=== PATIENT | female | born 1945 | race Caucasian/White ===

== ENCOUNTER 2019-01-14 06:30 | Inpatient (IN) | payer MEDICARE ==
[~2019-01-14 06:30] MED LIST: Famotidine 20 MG/2 ML SDV IVPUSH SCH; Scopolamine 1.5 MG Transdermal Patch TRDERM SCH
[2019-01-14] MEDS ORDERED: Propofol 200 MG/20 ML SDV ONE (07:13)
[2019-01-14] MEDS ORDERED: Midazolam 1 MG/ML 2 ML SDV ONE (07:13)
[2019-01-14] MEDS ORDERED: fentaNYL 100 MCG/2 ML SDV ONE (07:13)
[2019-01-14] MEDS: Lactated Ringers 1,000 ML IV SCH ×2 (07:15→16:09)
[2019-01-14] MEDS ORDERED: Ketamine 500 mg/10 ML MDV ONE (07:19)
[2019-01-14] MEDS ORDERED: Dexamethasone 4 MG/ML 5 ML MDV ONE (07:20)
[2019-01-14] MEDS: Acetaminophen 1,000 MG in Premix Bag 1 BAG IV SCH ×6 (07:26→21:14)
--- NOTE | 2019-01-14 07:32 | PCM.PREANE ---
Preanesthetic Assessment - Anesthesia/Transfusion/Family Hx Anesthesia History: Prior Anesthesia Without Reaction Family History of Anesthesia Reaction: No Transfusion History: Prior Transfusion Without Reaction Intubation History: Unknown - Review of Systems General: No Symptoms Pulmonary: No Symptoms Cardiovascular: No Symptoms Gastrointestinal: No Symptoms Neurological: No Symptoms Other: Reports: None - Physical Assessment Height: 1.59 m Weight: 85.729 kg ASA Class: 3 Mental Status: Alert & Oriented x3 Airway Class: Mallampati = 2 Dentition: Reports: Dentures (upper) Thyro-Mental Finger Breadths: 3 Mouth Opening Finger Breadths: 3 ROM/Head Extension: Limited/Partial Lungs: Clear to Auscultation, Normal Respiratory Effort, Decreased Breath Sounds Cardiovascular: Regular Rate, Regular Rhythm - Allergies Allergies/Adverse Reactions: Allergies Allergy/AdvReac Type Severity Reaction Status Date / Time acetaminophen [From Percocet] Allergy Hives Verified 01/09/19 10:27 oxycodone [From Percocet] Allergy Hives Verified 01/09/19 10:27 - Blood Blood Available: No - Anesthesia Plan Pre-Op Medication Ordered: None - Acknowledgements Anesthesia Type Planned: General Anesthesia Pt an Appropriate Candidate for the Planned Anesthesia: Yes Alternatives and Risks of Anesthesia Discussed w Pt/Guardian: Yes Pt/Guardian Understands and Agrees with Anesthesia Plan: Yes PreAnesthesia Questionnaire HEENT History: Reports: Other (See Below) Other HEENT History: wears glasses, has upper denture Cardiovascular History: Reports: Arrhythmia (s/p ablation 04/08), CAD, High Cholesterol, Hypertension, [place] ( 2009), Other (See Below) (PVD (s/p carotid andarterectomy) 08/08) Respiratory History: Reports: COPD Other Respiratory History: uses O2 at night, sometimes during the day Gastrointestinal History: Reports: GERD, Hiatal Hernia Genitourinary History: Reports: None 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: Musculoskeletal History: Reports: Back Pain, Chronic, Fracture, Osteoarthritis Other Musculoskeletal History: hx of fx foot Neurological History: Reports: Neuropathy, Peripheral, Other (See Below) Other Neuro History: degenerative disc disease Psychiatric History: Reports: Anxiety, Depression Other Psychiatric History: "anxiety attacks" Endocrine/Metabolic History: Reports: Obesity/BMI 30+ Hematologic History: Reports: Anticoagulation Therapy, Blood Transfusion(s) - Past Surgical History Head Surgeries/Procedures: Reports: None Cardiovascular Surgical History: Reports: Cardiac Ablation, Carotid Endarterectomy, Coronary Artery Stent Other Cardiovascular Surgeries/Procedures: Angioplasty with 1 stent 2008, Left Carotid Endarterectomy, Cardiac Ablation for SVT 2017 GI Surgical History: Reports: Colonoscopy, EGD Female Surgical History: Reports: Tubal Ligation Neurological Surgical History: Reports: Lumbar Spine, Spinal Fusion Musculoskeletal Surgical History: Reports: Other (See Below) Other Musculoskeletal Surgeries/Procedures:: tendon transfer left thumb - SUBSTANCE USE Smoking Status *Q: Former Smoker Tobacco Use Within Last Twelve Months: No Recreational Drug Use History: No - HOME MEDS Home Medications: Home Meds ALPRAZolam [Xanax] 0.5 mg PO BID 01/09/19 [History] Acetaminophen/Diphenhydramine [Tylenol Pm Ex-Strength Caplet] 2 tab PO BEDTIME 01/09/19 [History] Aspirin [Adult Low Dose Aspirin EC] 81 mg PO QAM 01/09/19 [History] Atenolol 25 mg PO QAM 01/09/19 [History] Budesonide/Formoterol Fumarate [Symbicort 80-4.5 Mcg Inhaler] 1 puff INH BID PRN 01/09/19 [History] Calcium Carbonate/Vitamin D3 [Calcium 600 + Vit D 200] 1 tab PO QAM 01/09/19 [ History] Clopidogrel [Plavix] 75 mg PO DAILY 01/09/19 [History] Docusate Sodium [Colace] 200 mg PO BEDTIME 01/09/19 [History] Famotidine 20 mg PO BID 01/09/19 [History] Furosemide 40 mg PO QAM 01/09/19 [History] HYDROmorphone [Dilaudid] 4 mg PO Q4HR PRN 01/09/19 [History] Isosorbide Mononitrate [Isosorbide Mononitrate ER] 60 mg PO QAM 01/09/19 [ History] Lactobac Cmb #3/Fos/Pantethine [Probiotic & Acidophilus] 1 cap PO QAM 01/09/19 [ History] Nitroglycerin [Nitrostat] 0.4 mg SL ASDIRECTED PRN 01/09/19 [History] Potassium Chloride 20 meq PO BID 01/09/19 [History] Pravastatin Sodium [Pravastatin (Pravachol)] 80 mg PO QAM 01/09/19 [History] Pregabalin [Lyrica] 100 mg PO BID 01/09/19 [History] Spironolactone [Aldactone] 12.5 mg PO QAM 01/09/19 [History] busPIRone [Buspar] 15 mg PO BID 01/09/19 [History] - CURRENT (IN HOUSE) MEDS Current Meds: Current Medications Famotidine (Pepcid) 40 mg IVPUSH ONARRIVE [facility] Last Admin: 01/14/19 07:24 Dose: 40 mg Acetaminophen 1,000 mg/ Premix 100 mls @ 400 mls/hr IV ONARRIVE [facility] Last Admin: 01/14/19 07:26 Dose: 400 mls/hr Cefazolin Sodium/Dextrose 2 gm (/ Premix) 50 mls @ 100 mls/hr IV ONCALL [facility] Ropivacaine 49.25 ml/Ketorolac Tromethamine 30 mg/Epinephrine HCl 0.5 mg/ Clonidine HCl 80 mcg/ Sodium Chloride 75 mls @ 50 mls/sec INJECT ASDIRECTED [facility] Lactated Ringer's (Ringers, Lactated) 1,000 mls @ 100 mls/hr IV ASDIRECTED [facility] Tranexamic Acid 2,000 mg/ (Sodium Chloride) 120 mls @ 600 mls/hr IV ASDIRECTED [facility] Scopolamine (Transderm-Scop) 1.5 mg TRDERM ONARRIVE [facility] Last Admin: 01/14/19 07:24 Dose: 1.5 mg Discontinued Medications Dexamethasone (Dexamethasone) Confirm Administered Dose 20 mg .ROUTE .STK-MED ONE Stop: 01/14/19 07:21 Fentanyl (Sublimaze) Confirm Administered Dose 100 mcg .ROUTE .STK-MED ONE Stop: 01/14/19 07:14 Lidocaine HCl (Xylocaine-Mpf 1%) Confirm Administered Dose 5 mls @ as directed .ROUTE .STK-MED ONE Stop: 01/14/19 07:20 Ketamine HCl (Ketalar) Confirm Administered Dose 500 mg .ROUTE .STK-MED ONE Stop: 01/14/19 07:20 Midazolam HCl (Versed 1 Mg/Ml) Confirm Administered Dose 2 mg .ROUTE .STK-MED ONE Stop: 01/14/19 07:14 Propofol (Diprivan 20 Ml) Confirm Administered Dose 400 mg .ROUTE .STK-MED ONE Stop: 01/14/19 07:14
[2019-01-14] MEDS ORDERED: Rocuronium 10 MG/ML 10 ML Syringe ONE (07:53)
[2019-01-14] MEDS ORDERED: ceFAZolin/Dextrose,Iso-Osmotic 2 GM/50 ML Duplex Bag IV ONE (07:53)
[2019-01-14] MEDS ORDERED: Ropivacaine 49.25 ML, Ketorolac 30 MG, EPINEPHrine 0.5 MG, cloNIDine 80 MCG in Sodium C... INJECT SCH (08:00)
[2019-01-14] MEDS ORDERED: ceFAZolin 2 GM in Premix Bag 1 BAG IV SCH (08:00)
[2019-01-14] MEDS ORDERED: Tranexamic Acid 2,000 MG in Sodium Chloride 0.9% 100 ML IV SCH (08:00)
[2019-01-14] MEDS ORDERED: Phenylephrine/Normal Saline 100 MCG/ML 10 ML Syringe ONE (08:15)
[2019-01-14] MEDS ORDERED: ePHEDrine 50 MG/ML SDV ONE (08:21)
[2019-01-14] MEDS ORDERED: HYDROmorphone 2 MG/ML Syringe ONE (08:28)
[2019-01-14] MEDS ORDERED: Ketorolac 30 MG/ML SDV ONE (08:45)
[2019-01-14] MEDS ORDERED: Glycopyrrolate 0.2 MG/ML SDV ONE ×2 (08:45→09:15)
[2019-01-14] MEDS ORDERED: Neostigmine Methylsulfate 1 MG/ML 5 ML Syringe ONE (08:45)
[2019-01-14] MEDS ORDERED: Ondansetron 4 MG/2 ML SDV ONE (08:45)
[2019-01-14] MEDS ORDERED: Sodium Chloride 0.9% 10 ML Syringe FLUSH PRN (09:19)
[2019-01-14] MEDS ORDERED: diphenhydrAMINE 25 MG Cap PO PRN (09:19)
[2019-01-14] MEDS ORDERED: Sodium Chloride 0.9% 2.5 ML Syringe FLUSH PRN (09:19)
[2019-01-14] MEDS ORDERED: Bisacodyl 10 MG Supp RECTAL PRN (09:19)
[2019-01-14] MEDS ORDERED: Docusate Sodium 100 MG Cap PO PRN (09:19)
[2019-01-14] MEDS ORDERED: Ondansetron 4 MG/2 ML SDV IVPUSH PRN (09:19)
[2019-01-14] MEDS ORDERED: Aluminum Hydroxide/Magnesium Hydroxide/Simethicone Susp 30 ML Cup PO PRN (09:19)
[2019-01-14] MEDS ORDERED: BUDESONIDE INH PRN (09:24)
[2019-01-14] MEDS ORDERED: Nitroglycerin 0.4 MG Tab.SL SL PRN (09:24)
[2019-01-14] MEDS ORDERED: FORMOTEROL FUMARATE INH PRN (09:24)
--- NOTE | 2019-01-14 09:36 | PCM.OPNOTE ---
- General Post-Op/Procedure Note Date of Surgery/Procedure: 01/14/19 Operative Procedure(s): R TKA Post-Op Diagnosis: DJD R knee Anesthesia Technique: General ET Tube Primary Surgeon: Katiana Madera Customer Sales Distributor: Latosha Jones Customer Sales Distributor: Denia Dwyer EBL in mLs: 50 Condition: Good Free Text/Narrative:: tt=38 min #[id number]
[2019-01-14] MEDS: HYDROmorphone 2 MG/ML Syringe IVPUSH PRN ×4 (09:55→10:25)
[2019-01-14] MEDS ORDERED: HYDROmorphone 2 MG/ML Syringe IVPUSH PRN (11:04)
[2019-01-14] MEDS: HYDROmorphone 2 MG Tab PO PRN ×3 (13:52→23:01)
--- NOTE | 2019-01-14 14:11 | PCM.CONS ---
<Hortencia Sandoval M - Last Filed: 01/14/19 14:01> H&P History of Present Illness - General Date of Service: 01/14/19 Admit Problem/Dx: Admission Diagnosis/Problem Admission Diagnosis/Problem Replacement of total knee joint Source of Information: Patient, Old Records (Review of PCP and Dr Guevara pre- operative notes.) History Limitations: Reports: No Limitations - History of Present Illness Initial Comments - Free Text/Narative: This 73 year old female with pmh of CAD, [place] s/p PCI, COPD oxygen dependent, and hx of R carotid endarterectomy presented today for elective R TKA with Dr Madera. Hospitalist services consulted due to medical comorbidities. She did have cardiac catheterization March 2018, after episodes of chest pain, this was noted by Dr Guevara as unremarkable. Marisela recently arrived to floor from PACU, she was just up with PT and is now complaining of R knee pain 5-6/10. She denies any chest pain or shortness of breath. SHe is currently on home level oxygen at 3 L NC. She reports she doesn' t always wear it at home and sometimes with strenuous activity she will need to increase it. She saw Dr Guevara, trimming assembler pre-operatively, who increased Lasix to 40 mg BID, but then stopped this and placed her back on Lasix 40 mg daily with 12.5 Spironolactone. She feels her edema to her feet is much better after he changed her meds. She reports she otherwise is feeling well and at her baseline. Labwork today, CBC WNL. BUN 26, Cr 1.6. This is elevated from baseline at BUN 23 , Cr 1.1. Will monitor. PCP, BOB Abreu Right Knee Pain Score (Numeric/FACES): 6 - Related Data Allergies/Adverse Reactions: Allergies Allergy/AdvReac Type Severity Reaction Status Date / Time acetaminophen [From Percocet] Allergy Hives Verified 01/09/19 10:27 oxycodone [From Percocet] Allergy Hives Verified 01/09/19 10:27 Home Medications: Home Meds ALPRAZolam [Xanax] 0.5 mg PO BID 01/09/19 [History] Acetaminophen/Diphenhydramine [Tylenol Pm Ex-Strength Caplet] 2 tab PO BEDTIME 01/09/19 [History] Aspirin [Adult Low Dose Aspirin EC] 81 mg PO QAM 01/09/19 [History] Atenolol 25 mg PO QAM 01/09/19 [History] Budesonide/Formoterol Fumarate [Symbicort 80-4.5 Mcg Inhaler] 1 puff INH BID PRN 01/09/19 [History] Calcium Carbonate/Vitamin D3 [Calcium 600 + Vit D 200] 1 tab PO QAM 01/09/19 [ History] Clopidogrel [Plavix] 75 mg PO DAILY 01/09/19 [History] Docusate Sodium [Colace] 200 mg PO BEDTIME 01/09/19 [History] Famotidine 20 mg PO BID 01/09/19 [History] Furosemide 40 mg PO QAM 01/09/19 [History] HYDROmorphone [Dilaudid] 4 mg PO Q4HR PRN 01/09/19 [History] Isosorbide Mononitrate [Isosorbide Mononitrate ER] 60 mg PO QAM 01/09/19 [ History] Lactobac Cmb #3/Fos/Pantethine [Probiotic & Acidophilus] 1 cap PO QAM 01/09/19 [ History] Nitroglycerin [Nitrostat] 0.4 mg SL ASDIRECTED PRN 01/09/19 [History] Potassium Chloride 20 meq PO BID 01/09/19 [History] Pravastatin Sodium [Pravastatin (Pravachol)] 80 mg PO QAM 01/09/19 [History] Pregabalin [Lyrica] 100 mg PO BID 01/09/19 [History] Spironolactone [Aldactone] 12.5 mg PO QAM 01/09/19 [History] busPIRone [Buspar] 15 mg PO BID 01/09/19 [History] Past Medical History HEENT History: Reports: Other (See Below) Other HEENT History: wears glasses, has upper denture Cardiovascular History: Reports: Arrhythmia (s/p ablation 04/08), CAD, High Cholesterol, Hypertension, [place] ( 2009), Other (See Below) (PVD (s/p carotid endarterectomy) 08/08) Respiratory History: Reports: COPD Other Respiratory History: uses O2 at night, sometimes during the day Gastrointestinal History: Reports: GERD, Hiatal Hernia Genitourinary History: Reports: None 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 Denies: Diabetes, Type II Hematologic History: Reports: Anticoagulation Therapy, Blood Transfusion(s) - Past Surgical History Head Surgeries/Procedures: Reports: None Cardiovascular Surgical History: Reports: Cardiac Ablation, Carotid Endarterectomy, Coronary Artery Stent Other Cardiovascular Surgeries/Procedures: Angioplasty with 1 stent 2008, Left Carotid Endarterectomy, Cardiac Ablation for SVT 2016 GI Surgical History: Reports: Colonoscopy, EGD Female Surgical History: Reports: Tubal Ligation Neurological Surgical History: Reports: Lumbar Spine, Spinal Fusion Musculoskeletal Surgical History: Reports: Other (See Below) Other Musculoskeletal Surgeries/Procedures:: tendon transfer left thumb Social & Family History - Tobacco Use Smoking Status *Q: Former Smoker Years of Tobacco use: 40 Packs/Tins Daily: 1 Tobacco Use Comment: quit smoking March 2017 - Alcohol Use Alcohol Use History: No Alcohol Use Frequency: Socially - Recreational Drug Use Recreational Drug Use: No Drug Use in Last 12 Months: No H&P Review of Systems - Review of Systems: Review Of Systems: See Below General: Reports: No Symptoms. Denies: Fever, Chills, Malaise, Weakness HEENT: Reports: No Symptoms. Denies: Headaches, Sinus Congestion, Sore Throat Pulmonary: Reports: No Symptoms. Denies: Shortness of Breath, Wheezing, Cough Cardiovascular: Reports: No Symptoms. Denies: Chest Pain, Dyspnea on Exertion, Edema Gastrointestinal: Reports: No Symptoms. Denies: Abdominal Pain, Black Stool, Bloody Stool, Decreased Appetite, Distension, Nausea Genitourinary: Reports: No Symptoms Musculoskeletal: Reports: Joint Pain (R Knee pain after PT) Psychiatric: Reports: No Symptoms Neurological: Reports: No Symptoms Hematologic/Lymphatic: Reports: No Symptoms Immunologic: Reports: No Symptoms Exam - Exam Exam: See Below - Vital Signs Vital Signs: Last Vital Signs Temp 98.1 F 01/14/19 10:40 Pulse 58 L 01/14/19 11:55 Resp 16 01/14/19 11:55 BP 97/71 01/14/19 11:55 Pulse Ox 93 L 01/14/19 11:55 Weight: 85.729 kg - Exam Quality Assessment: Supplemental Oxygen, Urinary Catheter, DVT Prophylaxis General: Alert, Oriented, Cooperative HEENT: Conjunctiva Clear Neck: Supple, Trachea Midline Lungs: Clear to Auscultation, Normal Respiratory Effort Cardiovascular: Regular Rate, Regular Rhythm, Normal S1, Normal S2. No: Irregular Rhythm, Systolic Murmur GI/Abdominal Exam: Normal Bowel Sounds, Soft, Non-Tender, No Distention Extremities: Normal Inspection, Normal Range of Motion, Non-Tender, Pedal Edema (scant +1 to L foot) Neuro Extensive - Mental Status: Alert, Oriented x3, Normal Mood/Affect Neuro Extensive - Motor, Sensory, Reflexes: CN II-XII Intact Psychiatric: Alert, Normal Affect, Normal Mood - Patient Data Lab Results Last 24 hrs: Laboratory Results - last 24 hr 01/14/19 01/14/19 01/14/19 Range/Units 07:10 12:12 12:12 WBC 9.21 (4.0-11.0) K/uL RBC 4.12 L (4.30-5.90) M/uL Hgb 12.3 (12.0-16.0) g/dL Hct 38.4 (36.0-46.0) % MCV 93.2 (80.0-98.0) fL MCH 29.9 (27.0-32.0) pg MCHC 32.0 (31.0-37.0) g/dL RDW Std Deviation 46.9 (28.0-62.0) fl RDW Coeff of Karen 14 (11.0-15.0) % Plt Count 260 (150-400) K/uL MPV 10.20 (7.40-12.00) fL Neut % (Auto) 91.5 H (48.0-80.0) % Lymph % (Auto) 7.9 L (16.0-40.0) % [place] % (Auto) 0.4 (0.0-15.0) % Eos % (Auto) 0.1 (0.0-7.0) % Baso % (Auto) 0.1 (0.0-1.5) % Neut # (Auto) 8.4 H (1.4-5.7) K/uL Lymph # (Auto) 0.7 (0.6-2.4) K/uL [place] # (Auto) 0.0 (0.0-0.8) K/uL Eos # (Auto) 0.0 (0.0-0.7) K/uL Baso # (Auto) 0.0 (0.0-0.1) K/uL Nucleated RBC % 0.0 /100WBC Nucleated RBCs # 0 K/uL Sodium 137 (136-145) mmol/L Potassium 5.1 (3.5-5.1) mmol/L Chloride 101 (98-107) mmol/L Carbon Dioxide 25.6 (21.0-32.0) mmol/L BUN 26 H (7.0-18.0) mg/dL Creatinine 1.6 H (0.6-1.0) mg/dL Est Cr Clr Drug Dosing 26.09 mL/min Estimated GFR (MDRD) 31.8 ml/min Glucose 181 H (74-106) mg/dL Calcium 8.3 L (8.5-10.1) mg/dL Magnesium 2.0 (1.8-2.4) mg/dL Blood Type O POSITIVE Antibody Screen NEGATIVE Result Diagrams: 01/14/19 12:12 01/14/19 12:12 Consult PN Assessment/Plan Procedures: Procedures EDUARDO DNA DIR PROBE (01/06/17) CULTURE OTHR SPECIMN AEROBIC (01/06/17) FISCHER VAG DNA DIR PROBE (01/06/17) MRI JNT OF LWR EXTRE W/O DYE (11/29/18) TRICHOMONAS VAGIN DIR PROBE (01/06/17) X-RAY EXAM KNEE 4 OR MORE (10/26/18) (1) S/P total knee arthroplasty SNOMED Code(s): 8967461327729, 269848802, 7087923459344 Code(s): Z96.659 - PRESENCE OF UNSPECIFIED ARTIFICIAL KNEE JOINT Current Visit: Yes Qualifiers: Laterality: right Qualified Code(s): Z96.651 - Presence of right artificial knee joint (2) HTN (hypertension) SNOMED Code(s): 77127534 Code(s): I10 - ESSENTIAL (PRIMARY) HYPERTENSION Current Visit: Yes Qualifiers: Hypertension type: essential hypertension Qualified Code(s): I10 - Essential (primary) hypertension (3) CAD (coronary artery disease) SNOMED Code(s): 35335129 Code(s): I25.10 - ATHSCL HEART DISEASE OF [place] CORONARY ARTERY W/O ANG PCTRS Current Visit: Yes Qualifiers: Coronary Disease-Associated Artery/Lesion type: [place] artery [place] vs. transplanted heart: [place] heart Associated angina: without angina Qualified Code(s): I25.10 - Atherosclerotic heart disease of [place] coronary artery without angina pectoris (4) Hx of myocardial infarction SNOMED Code(s): 053678466 Code(s): I25.2 - OLD MYOCARDIAL INFARCTION Current Visit: Yes (5) History of carotid endarterectomy SNOMED Code(s): 330932429, 883702523 Code(s): Z98.890 - OTHER SPECIFIED POSTPROCEDURAL STATES Current Visit: Yes (6) COPD (chronic obstructive pulmonary disease) SNOMED Code(s): 17628767 Code(s): J44.9 - CHRONIC OBSTRUCTIVE PULMONARY DISEASE, UNSPECIFIED Current Visit: Yes (7) Oxygen dependent SNOMED Code(s): 582430021378 Code(s): Z99.81 - DEPENDENCE ON SUPPLEMENTAL OXYGEN Current Visit: Yes (8) Hx of supraventricular tachycardia SNOMED Code(s): 284563879545930 Code(s): Z86.79 - PERSONAL HISTORY OF OTHER DISEASES OF THE CIRCULATORY SYSTEM Current Visit: Yes (9) History of radiofrequency ablation procedure for cardiac arrhythmia SNOMED Code(s): 413917285 Code(s): Z98.890 - OTHER SPECIFIED POSTPROCEDURAL STATES Current Visit: Yes (10) Dyslipidemia SNOMED Code(s): 077195127 Code(s): E78.5 - HYPERLIPIDEMIA, UNSPECIFIED Current Visit: Yes Problem List Initiated/Reviewed/Updated: Yes Plan: This 73 year old female admitted with R TKA with Dr Madera, hospitalist consulted for medical management of comorbidities 1. S/P R TKA: Orders per Orthopedic Team 2. HTN: Continue Atenolol and Imdur along with Lasix and Spironolactone. Will hold Potassium supplementation due to K+ 5.1. Monitor in am. 3. CAD: Stable. Continue ASA and Plavix. Along with statin. 4. COPD: Stable, no wheezing. Continue home inhalers, Symbicort. Order PRN Duonebs. 5. Elevated BUN/Cr: Monitor in am. Urine output good so far. Monitor fluids status in am, may consider slight dehydration prior to surgery. VTE prophylaxis: Recommended when deemed appropriate by Orthopedics <Marty King - Last Filed: 01/14/19 15:06> H&P History of Present Illness - General Admit Problem/Dx: Admission Diagnosis/Problem Admission Diagnosis/Problem Replacement of total knee joint - History of Present Illness Initial Comments - Free Text/Narative: I have seen and examined the patient independently of Hortencia Sandoval CNP. I have discussed the case with her. I have reviewed and agree with the assessment and plan of care for the patient as outlined by her. Please see orders. Thank you Dr. Madera for participation in care of your patient. Exam - Vital Signs Vital Signs: Last Vital Signs Temp 36.7 C 01/14/19 10:40 Pulse 58 L 01/14/19 11:55 Resp 16 01/14/19 11:55 BP 97/71 01/14/19 11:55 Pulse Ox 93 L 01/14/19 11:55 - Patient Data Lab Results Last 24 hrs: Laboratory Results - last 24 hr 01/14/19 01/14/19 01/14/19 Range/Units 07:10 12:12 12:12 WBC 9.21 (4.0-11.0) K/uL RBC 4.12 L (4.30-5.90) M/uL Hgb 12.3 (12.0-16.0) g/dL Hct 38.4 (36.0-46.0) % MCV 93.2 (80.0-98.0) fL MCH 29.9 (27.0-32.0) pg MCHC 32.0 (31.0-37.0) g/dL RDW Std Deviation 46.9 (28.0-62.0) fl RDW Coeff of Karen 14 (11.0-15.0) % Plt Count 260 (150-400) K/uL MPV 10.20 (7.40-12.00) fL Neut % (Auto) 91.5 H (48.0-80.0) % Lymph % (Auto) 7.9 L (16.0-40.0) % [place] % (Auto) 0.4 (0.0-15.0) % Eos % (Auto) 0.1 (0.0-7.0) % Baso % (Auto) 0.1 (0.0-1.5) % Neut # (Auto) 8.4 H (1.4-5.7) K/uL Lymph # (Auto) 0.7 (0.6-2.4) K/uL [place] # (Auto) 0.0 (0.0-0.8) K/uL Eos # (Auto) 0.0 (0.0-0.7) K/uL Baso # (Auto) 0.0 (0.0-0.1) K/uL Nucleated RBC % 0.0 /100WBC Nucleated RBCs # 0 K/uL Sodium 137 (136-145) mmol/L Potassium 5.1 (3.5-5.1) mmol/L Chloride 101 (98-107) mmol/L Carbon Dioxide 25.6 (21.0-32.0) mmol/L BUN 26 H (7.0-18.0) mg/dL Creatinine 1.6 H (0.6-1.0) mg/dL Est Cr Clr Drug Dosing 26.09 mL/min Estimated GFR (MDRD) 31.8 ml/min Glucose 181 H (74-106) mg/dL Calcium 8.3 L (8.5-10.1) mg/dL Magnesium 2.0 (1.8-2.4) mg/dL Blood Type O POSITIVE Antibody Screen NEGATIVE Result Diagrams: 01/14/19 12:12 01/14/19 12:12 Consult PN Assessment/Plan Procedures: Procedures EDUARDO DNA DIR PROBE (01/06/17) CULTURE OTHR SPECIMN AEROBIC (01/06/17) FISCHER VAG DNA DIR PROBE (01/06/17) MRI JNT OF LWR EXTRE W/O DYE (11/29/18) TRICHOMONAS VAGIN DIR PROBE (01/06/17) X-RAY EXAM KNEE 4 OR MORE (10/26/18)
--- NOTE | 2019-01-14 15:40 | OR ---
SURGEON: Katiana Madera MD DATE OF PROCEDURE: 01/14/2019 PREOPERATIVE DIAGNOSIS: Degenerative joint disease, right knee, tricompartmental. POSTOPERATIVE DIAGNOSIS: Degenerative joint disease, right knee, tricompartmental. PROCEDURE: Right total knee arthroplasty using patient-specific instrumentation. ASSISTANTS: Latosha Jones PA-C and JENNIFER Lassiter. ANESTHESIA: General. ESTIMATED BLOOD LOSS: 50 mL. TOURNIQUET TIME: 38 minutes. COMPLICATIONS: None. DVT PROPHYLAXIS: PAS boot and VINNY hose to the nonoperative leg. IMPLANTS USED: Satish Persona femoral component size 8 narrow (LPS), tibial component size E, 10 mm all-polyethylene articular insert, and 35 mm all-polyethylene patella. FINDINGS: Intraoperative findings showed severe tricompartmental degenerative changes with grade 4 chondromalacia. Osteophyte formation was also noted. No significant synovitis was found. BRIEF HISTORY: Marisela is a 73-year-old female, who has had complaint of progressive right knee pain. She had failed conservative treatment. Due to her lack of response to conservative treatment, I did recommend surgical intervention. The risks and goals of procedure were discussed with the patient and were documented preoperatively. She agreed to proceed. DESCRIPTION OF PROCEDURE: The patient was properly identified and brought to the operating room. The patient was then transferred from the operating room cart and placed on the operating table in a supine position. Anesthesia was administered by the anesthesia staff. After adequate anesthesia was obtained, a well-padded tourniquet was applied to the surgical lower extremity. Griggs catheter was placed. The lower extremity was then prepped in standard fashion using ChloraPrep solution. It was then sterilely draped. A time-out was performed to ensure correct site and procedure. Preoperative antibiotics were given along with one gram of tranexamic acid IV. The surgical site had been marked preoperatively. An Esmarch was used to exsanguinate the right lower extremity and the tourniquet was inflated. An incision was made over the anterior aspect of the knee. The subcutaneous tissues were dissected down to the level of the fascia. A medial parapatellar approach to the knee was made. A portion of the infrapatellar fat pad was then excised. The distal femur was then exposed. The femoral patient-specific cutting guide was then placed. Pins were also placed. The distal femoral cutting block was placed and the distal femoral cut was made. Instrumentation was then removed. Both Whitesides' line and the epicondylar axis were then marked with electrocautery. The 4-in-1 cutting block was placed. This was placed in a slightly externally rotated position, which corresponded well with the previously drawn lines. The cutting guide was then pinned into position. An [place] wing guide was used to check the depth of resection of our anterior condylar cut and it was felt that no notching would occur. The anterior condylar cut was then made followed by the posterior condylar cut. Both the posterior chamfer and anterior chamfer cuts were then made. The cutting block was then removed along with the excess bony remnants. We then turned our attention to the tibia. The anterior cruciate ligament and posterior cruciate ligament were released and a posterior cruciate ligament retractor was placed to allow the tibia to be pulled anteriorly. The tibial patient-specific guide was then placed on the proximal tibia. This fit anatomically. The pins were then placed. The proximal tibia cutting guide was then placed and screwed into position. The proximal tibial resection was then made with care being taken to protect the patellar tendon. The bony resection was then removed. The remainder of the medial and lateral meniscus were then excised. Care was taken to protect the popliteus tendon. The tibia was then sized to the appropriate size. The distal femur was then elevated. The posterior capsule was stripped off of the distal femur both medially and laterally. The posterior capsule along with the medial and lateral gutters were then injected with a standard mixture consisting of clonidine, epinephrine, Toradol, and Ropivacaine, unless any allergies were found preoperatively. The femoral component was then placed onto the distal femur in a slightly lateral position. This fit the femur well. A box cut was then made without difficulty. This was then removed. The tibial trial along with the polyethylene liner was then placed. The knee came easily into full extension and was stable to varus and valgus stressing both in full extension and flexion. Any additional releases were performed at this time. We then returned our attention to the patella. The patella was everted and towel clamps were used to hold the patella in position. It was resected to a 15 millimeter thickness. It was then sized to the appropriate size. It was prepared in the usual fashion after placing the predetermined size clamps. This was placed in a slightly superior and medial position. The clamp was then removed. The patellar trial button was placed. The knee was taken through a range of motion using the no-touch technique. The patella tracked centrally. A drop charisma was then placed to check alignment. All instruments were then removed from the knee. The tibial sizer was then placed on the tibia. The tibia was prepared in the usual fashion using the reamer and broach. This was then removed. All bony surfaces were copiously irrigated with Pulsavac solution. They were then suctioned dry. Cement was prepared on the back table in the usual manner. Once it was prepared, the bone ends were again suctioned dry. The tibia was cemented into place first. This was malleted into position. Excess cement was then cleared. The femur was then placed in a similar manner. We placed the polyethylene trial into place and the knee was brought into full extension. An axial load was placed while keeping the knee in full extension. The patella button was also cemented into position and the clamp was used to hold this in place as the cement was allowed to cure. The wound was again copiously irrigated with saline solution using a Pulsavac assignment manager. Following this 1 g of tranexamic acid was applied to the wound topically. After we had adequate curing of the cement, the knee was again taken through a range of motion. The size of the polyethylene was then determined. The polyethylene trial was then removed. The tibial tray was suctioned to make sure there was no remaining soft tissue or cement. Excess cement was cleared from around the edges of the prosthesis as well. The tourniquet was then deflated. We were able to observe for any excess bleeding and none was noted. Electrocautery was used to maintain hemostasis. An additional gram of tranexamic acid was given IV. The retractors were again placed and the predetermined polyethylene was then placed. This was locked into position without difficulty. The knee was again taken through a range of motion with no change from the prior exam. The fascial layer was closed with Number One Vicryl. The subcutaneous tissues were closed with 2-0 Vicryl. The skin was closed with rachael. Xeroform gauze was placed over the wound and a bulky dressing was applied. The patient was then awakened from anesthesia and transferred back to the operating room cart. They were brought to the recovery room in stable condition. All needle and sponge counts were correct. ABIDA / MODL /[id number]
--- NOTE | 2019-01-14 15:58 | CR ---
EXAMINATION: Right knee HISTORY: TKA COMPARISON: 10/26/2018 TECHNIQUE: 2 views FINDINGS/IMPRESSION: Right total knee hardware is demonstrated in good position and alignment. Operative soft tissue changes are noted.
[2019-01-14] MEDS: ceFAZolin 2 GM in Premix Bag 1 BAG IV SCH ×2 (16:11→23:15)
[2019-01-14] MEDS: Pregabalin 50 MG Cap PO SCH (20:01)
[2019-01-14] MEDS: ALPRAZolam 0.5 MG Tab PO SCH (20:02)
[2019-01-14] MEDS: busPIRone 5 MG Tab PO SCH (20:02)
[2019-01-14] MEDS: Famotidine 20 MG Tab PO SCH (20:03)
[2019-01-14] MEDS ORDERED: Potassium Chloride 20 MEQ Tab.ER PO SCH (21:00)
[2019-01-14] MEDS ORDERED: Docusate Sodium 100 MG Cap PO SCH (21:00)
[2019-01-15] MEDS: HYDROmorphone 2 MG Tab PO PRN ×4 (02:39→16:03)
[2019-01-15] MEDS: Lactated Ringers 1,000 ML IV SCH (02:40)
[2019-01-15] MEDS: Acetaminophen 1,000 MG in Premix Bag 1 BAG IV SCH (02:42)
--- NOTE | 2019-01-15 07:08 | PCM48HPAN ---
Post Anesthesia Note - EVALUATION WITHIN 48HRS OF ANESTHETIC Vital Signs in Normal Range: Yes Patient Participated in Evaluation: Yes Respiratory Function Stable: Yes Airway Patent: Yes Cardiovascular Function Stable: Yes Hydration Status Stable: Yes Pain Control Satisfactory: Yes Nausea and Vomiting Control Satisfactory: Yes Mental Status Recovered: Yes Resp Rate: 14
--- NOTE | 2019-01-15 07:22 | PCM.PN ---
- General Info Date of Service: 01/15/19 Admission Dx/Problem (Free Text): Right total knee arthroplasty postop day #1, hypertension, COPD, history of MA Subjective Update: The patient is a 73-year-old lady came in for total knee arthroplasty right side and she is currently postop day #1. The patient says that she has been ambulating. She is having some pain. Otherwise, she is doing well with no medical complaints. Functional Status: Reports: Pain Controlled, Tolerating Diet - Review of Systems General: Reports: No Symptoms HEENT: Reports: No Symptoms Pulmonary: Reports: No Symptoms Cardiovascular: Reports: No Symptoms Gastrointestinal: Reports: No Symptoms Genitourinary: Reports: No Symptoms Musculoskeletal: Reports: Leg Pain Skin: Reports: No Symptoms Neurological: Reports: No Symptoms Psychiatric: Reports: No Symptoms - Patient Data Vitals - Most Recent: Last Vital Signs Temp 36.8 C 01/15/19 05:26 Pulse 63 01/15/19 05:26 Resp 14 01/15/19 07:08 BP 132/64 01/15/19 05:26 Pulse Ox 97 01/15/19 05:26 Weight - Most Recent: 85.729 kg I&O - Last 24 Hours: Intake & Output 01/14/19 01/15/19 01/15/19 22:59 06:59 14:59 Intake Total 990 700 Output Total 250 950 Balance 740 -250 Lab Results Last 24 Hours: Laboratory Results - last 24 hr 01/14/19 01/14/19 01/14/19 Range/Units 07:10 12:12 12:12 WBC 9.21 (4.0-11.0) K/uL RBC 4.12 L (4.30-5.90) M/uL Hgb 12.3 (12.0-16.0) g/dL Hct 38.4 (36.0-46.0) % MCV 93.2 (80.0-98.0) fL MCH 29.9 (27.0-32.0) pg MCHC 32.0 (31.0-37.0) g/dL RDW Std Deviation 46.9 (28.0-62.0) fl RDW Coeff of Karen 14 (11.0-15.0) % Plt Count 260 (150-400) K/uL MPV 10.20 (7.40-12.00) fL Neut % (Auto) 91.5 H (48.0-80.0) % Lymph % (Auto) 7.9 L (16.0-40.0) % [place] % (Auto) 0.4 (0.0-15.0) % Eos % (Auto) 0.1 (0.0-7.0) % Baso % (Auto) 0.1 (0.0-1.5) % Neut # (Auto) 8.4 H (1.4-5.7) K/uL Lymph # (Auto) 0.7 (0.6-2.4) K/uL [place] # (Auto) 0.0 (0.0-0.8) K/uL Eos # (Auto) 0.0 (0.0-0.7) K/uL Baso # (Auto) 0.0 (0.0-0.1) K/uL Nucleated RBC % 0.0 /100WBC Nucleated RBCs # 0 K/uL Sodium 137 (136-145) mmol/L Potassium 5.1 (3.5-5.1) mmol/L Chloride 101 (98-107) mmol/L Carbon Dioxide 25.6 (21.0-32.0) mmol/L BUN 26 H (7.0-18.0) mg/dL Creatinine 1.6 H (0.6-1.0) mg/dL Est Cr Clr Drug Dosing 26.09 mL/min Estimated GFR (MDRD) 31.8 ml/min Glucose 181 H (74-106) mg/dL Calcium 8.3 L (8.5-10.1) mg/dL Magnesium 2.0 (1.8-2.4) mg/dL Blood Type O POSITIVE Antibody Screen NEGATIVE 01/15/19 01/15/19 Range/Units 05:55 05:55 WBC (4.0-11.0) K/uL RBC (4.30-5.90) M/uL Hgb 10.5 L (12.0-16.0) g/dL Hct 33.1 L (36.0-46.0) % MCV (80.0-98.0) fL MCH (27.0-32.0) pg MCHC (31.0-37.0) g/dL RDW Std Deviation (28.0-62.0) fl RDW Coeff of Karen (11.0-15.0) % Plt Count (150-400) K/uL MPV (7.40-12.00) fL Neut % (Auto) (48.0-80.0) % Lymph % (Auto) (16.0-40.0) % [place] % (Auto) (0.0-15.0) % Eos % (Auto) (0.0-7.0) % Baso % (Auto) (0.0-1.5) % Neut # (Auto) (1.4-5.7) K/uL Lymph # (Auto) (0.6-2.4) K/uL [place] # (Auto) (0.0-0.8) K/uL Eos # (Auto) (0.0-0.7) K/uL Baso # (Auto) (0.0-0.1) K/uL Nucleated RBC % /100WBC Nucleated RBCs # K/uL Sodium 129 L (136-145) mmol/L Potassium 4.1 (3.5-5.1) mmol/L Chloride 95 L (98-107) mmol/L Carbon Dioxide 28.7 (21.0-32.0) mmol/L BUN 23 H (7.0-18.0) mg/dL Creatinine 1.2 H (0.6-1.0) mg/dL Est Cr Clr Drug Dosing 34.79 mL/min Estimated GFR (MDRD) 44.3 ml/min Glucose 123 H (74-106) mg/dL Calcium 7.9 L (8.5-10.1) mg/dL Magnesium (1.8-2.4) mg/dL Blood Type Antibody Screen Med Orders - Current: Current Medications Acetaminophen (Tylenol Extra Strength) 1,000 mg PO Q6H [facility] Al Hydroxide/Mg Hydroxide (Mag-Al Plus) 30 ml PO Q4H PRN PRN Reason: Indigestion Last Admin: 01/14/19 21:42 Dose: 30 ml Alprazolam (Xanax) 0.5 mg PO BID [facility] Last Admin: 01/14/19 20:02 Dose: 0.5 mg Aspirin (Halfprin) 81 mg PO QAM [facility] Atenolol (Tenormin) 25 mg PO QAM [facility] Bisacodyl (Dulcolax) 10 mg RECTAL DAILY PRN PRN Reason: Constipation Buspirone HCl (Buspar) 15 mg PO BID [facility] Last Admin: 01/14/19 20:02 Dose: 15 mg Calcium Carbonate (Caltrate 600+D 1500 Mg-400 Units) [facility] Clopidogrel Bisulfate (Plavix) 75 mg PO DAILY [facility] Diphenhydramine HCl (Benadryl) 25 - 50 mg PO Q6H PRN PRN Reason: Itching Docusate Sodium (Colace) 200 mg PO BEDTIME [facility] Last Admin: 01/14/19 20:02 Dose: 200 mg Famotidine (Pepcid) 40 mg IVPUSH ONARRIVE [facility] Last Admin: 01/14/19 07:24 Dose: 40 mg Famotidine (Pepcid) 20 mg PO BID [facility] Last Admin: 01/14/19 20:03 Dose: 20 mg [facility]urosemide (Lasix) [facility] Hydromorphone HCl (Dilaudid) 0 mg IVPUSH ONETIME PRN PRN Reason: Breakthrough Pain Last Admin: 01/14/19 10:25 Dose: 0.5 mg Hydromorphone HCl (Dilaudid) 4 mg PO Q4HR PRN PRN Reason: Pain Last Admin: 01/15/19 02:39 Dose: 4 mg Hydromorphone HCl (Dilaudid) 0.5 - 1 mg IVPUSH Q3H PRN PRN Reason: Pain Acetaminophen 1,000 mg/ Premix 100 mls @ 400 mls/hr IV ONARRIVE [facility] Last Admin: 01/14/19 20:06 Dose: 400 mls/hr Cefazolin Sodium/Dextrose 2 gm (/ Premix) 50 mls @ 100 mls/hr IV ONCALL [facility] Ropivacaine 49.25 ml/Ketorolac Tromethamine 30 mg/Epinephrine HCl 0.5 mg/ Clonidine HCl 80 mcg/ Sodium Chloride 75 mls @ 50 mls/sec INJECT ASDIRECTED [facility] Lactated Ringer's (Ringers, Lactated) 1,000 mls @ 100 mls/hr IV ASDIRECTED [facility] Last Admin: 01/15/19 02:40 Dose: 100 mls/hr Tranexamic Acid 2,000 mg/ (Sodium Chloride) 120 mls @ 600 mls/hr IV ASDIRECTED [facility] Isosorbide Mononitrate (Imdur) 60 mg PO QAM [facility] Nitroglycerin (Nitrostat) 0.4 mg SL ASDIRECTED PRN PRN Reason: Chest Pain Ondansetron HCl (Zofran) 4 mg IVPUSH Q6H PRN PRN Reason: Nausea/Vomiting Budesonide/Formoterol Fumarate 1 Puff 0 each INH BID PRN PRN Reason: Shortness of Breath Polyethylene Glycol (Miralax) 17 gm PO DAILY [facility] Pravastatin Sodium (Pravachol) 80 mg PO QAM [facility] Pregabalin (Lyrica) 100 mg PO BID [facility] Last Admin: 01/14/19 20:01 Dose: 100 mg Scopolamine (Transderm-Scop) 1.5 mg TRDERM ONARRIVE [facility] Last Admin: 01/14/19 07:24 Dose: 1.5 mg Sodium Chloride (Saline Flush) 10 ml FLUSH ASDIRECTED PRN PRN Reason: Keep Vein Open Sodium Chloride (Saline Flush) 2.5 ml FLUSH ASDIRECTED PRN PRN Reason: Keep Vein Open Spironolactone (Aldactone) 12.5 mg PO QAM [facility] Discontinued Medications Cefazolin Sodium/Dextrose (Ancef) Confirm Administered Dose 2 gm IV .STK-MED ONE Stop: 01/14/19 07:54 Dexamethasone (Dexamethasone) Confirm Administered Dose 20 mg .ROUTE .STK-MED ONE Stop: 01/14/19 07:21 Docusate Sodium (Colace) 100 mg PO BID PRN PRN Reason: Constipation Ephedrine Sulfate (Ephedrine Sulfate) Confirm Administered Dose 50 mg .ROUTE .STK-MED ONE Stop: 01/14/19 08:22 Famotidine (Pepcid) 40 mg PO DAILY [facility] Fentanyl (Sublimaze) Confirm Administered Dose 100 mcg .ROUTE .STK-MED ONE Stop: 01/14/19 07:14 Glycopyrrolate (Robinul) Confirm Administered Dose 0.4 mg .ROUTE .STK-MED ONE Stop: 01/14/19 08:46 Glycopyrrolate (Robinul) Confirm Administered Dose 0.2 mg .ROUTE .STK-MED ONE Stop: 01/14/19 09:16 Hydromorphone HCl (Dilaudid) Confirm Administered Dose 2 mg .ROUTE .STK-MED ONE Stop: 01/14/19 08:29 Lidocaine HCl (Xylocaine-Mpf 1%) Confirm Administered Dose 5 mls @ as directed .ROUTE .[facility] ONE Stop: 01/14/19 07:20 Acetaminophen 1,000 mg/ Premix 100 mls @ 400 mls/hr IV Q6H [facility] Stop: 01/15/19 02:14 Last Admin: 01/15/19 02:42 Dose: 400 mls/hr Cefazolin Sodium/Dextrose 2 gm (/ Premix) 50 mls @ 100 mls/hr IV Q8H [facility] Stop: 01/15/19 00:29 Last Admin: 01/14/19 23:15 Dose: 100 mls/hr Ketamine HCl (Ketalar) Confirm Administered Dose 500 mg .ROUTE .[facility] ONE Stop: 01/14/19 07:20 Ketorolac Tromethamine (Toradol) Confirm Administered Dose 30 mg .ROUTE .[facility] ONE Stop: 01/14/19 08:46 Midazolam HCl (Versed 1 Mg/Ml) Confirm Administered Dose 2 mg .ROUTE .[facility] ONE Stop: 01/14/19 07:14 Neostigmine Methylsulfate (Neostigmine) Confirm Administered Dose 5 mg .ROUTE .[facility] ONE Stop: 01/14/19 08:46 Ondansetron HCl (Zofran) Confirm Administered Dose 4 mg .ROUTE .[facility] ONE Stop: 01/14/19 08:46 Phenylephrine HCl (Phenylephrine In Ns 100 Mcg/Ml) Confirm Administered Dose 1 mg .ROUTE .[facility] ONE Stop: 01/14/19 08:16 Potassium Chloride (Klor-Con M20) 20 meq PO BID [facility] Propofol (Diprivan 20 Ml) Confirm Administered Dose 400 mg .ROUTE .[facility] Stop: 01/14/19 07:14 Rocuronium [place] (Zemuron) Confirm Administered Dose 100 mg .ROUTE .[facility] ONE Stop: 01/14/19 07:54 Tranexamic Acid (Cyklokapron) Confirm Administered Dose 2,000 mg .ROUTE .[facility] ONE Stop: 01/14/19 07:28 Tranexamic Acid (Cyklokapron) Confirm Administered Dose 2,000 mg .ROUTE .[facility] ONE Stop: 01/14/19 07:54 - Exam Quality Assessment: Supplemental Oxygen General: Alert, Oriented, Cooperative HEENT: Pupils Equal, Pupils Reactive, EOMI Neck: Supple, Trachea Midline Lungs: Clear to Auscultation, Normal Respiratory Effort Cardiovascular: Regular Rate, Regular Rhythm GI/Abdominal Exam: Normal Bowel Sounds, No Distention (Female) Exam: Deferred Back Exam: Normal Inspection, Full Range of Motion Extremities: No: Normal Inspection (Dressing right knee clean and dry), Normal Range of Motion (POD #1) Skin: Warm, Dry, Intact Neurological: No New Focal Deficit Psy/Mental Status: Alert, Normal Affect, Normal Mood - Problem List & Annotations (1) S/P total knee arthroplasty SNOMED Code(s): 9316972780679, 307959431, 9495204270000 Code(s): Z96.659 - PRESENCE OF UNSPECIFIED ARTIFICIAL KNEE JOINT Status: Acute Priority: High Current Visit: Yes Qualifiers: Laterality: right Qualified Code(s): Z96.651 - Presence of right artificial knee joint Annotation/Comment:: POD #1 (2) HTN (hypertension) SNOMED Code(s): 78653551 Code(s): I10 - ESSENTIAL (PRIMARY) HYPERTENSION Status: Chronic Priority : High Current Visit: Yes Qualifiers: Hypertension type: essential hypertension Qualified Code(s): I10 - Essential (primary) hypertension (3) CAD (coronary artery disease) SNOMED Code(s): 83641331 Code(s): I25.10 - ATHSCL HEART DISEASE OF [place] CORONARY ARTERY W/O ANG PCTRS Status: Chronic Priority: Medium Current Visit: Yes Qualifiers: Coronary Disease-Associated Artery/Lesion type: [place] artery [place] vs. transplanted heart: [place] heart Associated angina: without angina Qualified Code(s): I25.10 - Atherosclerotic heart disease of [place] coronary artery without angina pectoris (4) COPD (chronic obstructive pulmonary disease) SNOMED Code(s): 99041468 Code(s): J44.9 - CHRONIC OBSTRUCTIVE PULMONARY DISEASE, UNSPECIFIED Status : Chronic Priority: Medium Current Visit: Yes Qualifiers: COPD type: unspecified COPD Qualified Code(s): J44.9 - Chronic obstructive pulmonary disease, unspecified - Problem List Review Problem List Initiated/Reviewed/Updated: Yes - Plan Plan:: The patient is a 73-year-old lady who is seen in consult with orthopedic surgery with regards to her medical issues. The patient will be kept on oxygen to keep oxygen saturations above 92%. The patient also has a history of hypertension and her vital signs will continue to be monitored and her medications will be adjusted as necessary. She does have COPD and this is been stable through her hospitalization. The patient is also on telemetry secondary to her known heart disease. Internal medicine will follow in consultation.
[2019-01-15] MEDS: Acetaminophen 500 MG Tab PO SCH ×2 (07:45→14:10)
[2019-01-15] MEDS: ALPRAZolam 0.5 MG Tab PO SCH (08:26)
[2019-01-15] MEDS: busPIRone 5 MG Tab PO SCH (08:28)
[2019-01-15] MEDS: Pregabalin 50 MG Cap PO SCH (08:30)
[2019-01-15] MEDS: Famotidine 20 MG Tab PO SCH (08:31)
[2019-01-15] MEDS ORDERED: Calcium Carbonate/Vitamin D3 1500 MG-400 Units Tab PO SCH (09:00)
[2019-01-15] MEDS ORDERED: Furosemide 40 MG Tab PO SCH (09:00)
[2019-01-15] MEDS ORDERED: Atenolol 25 MG Tab PO SCH (09:00)
[2019-01-15] MEDS ORDERED: Isosorbide Mononitrate 60 MG Tab.ER PO SCH (09:00)
[2019-01-15] MEDS ORDERED: Clopidogrel 75 MG Tab PO SCH (09:00)
[2019-01-15] MEDS ORDERED: Aspirin 81 MG Tab.EC PO SCH (09:00)
[2019-01-15] MEDS ORDERED: Pravastatin 40 MG Tab PO SCH (09:00)
[2019-01-15] MEDS ORDERED: Polyethylene Glycol 3350 Powder 17 GM Packet PO SCH (09:00)
[2019-01-15] MEDS ORDERED: Famotidine 20 MG Tab PO SCH (09:00)
[2019-01-15] MEDS ORDERED: Spironolactone 25 MG Tab PO SCH (09:00)
--- NOTE | 2019-01-15 09:36 | PCM.SURGPN ---
- General Info Date of Service: 01/15/19 Date of Surgery/Procedure: 01/14/19 POD#: 1 Functional Status: Reports: Pain Controlled, Tolerating Diet, Ambulating - Review of Systems General: Reports: No Symptoms Pulmonary: Reports: No Symptoms Cardiovascular: Reports: No Symptoms Gastrointestinal: Reports: No Symptoms Systems Review Comment:: pt up to chair for breakfast tolerating PO intake well no nausea/vomiting pain controlled with scheduled tylenol and home schedule hung moralez has been ambulating no specific concerns today - Patient Data Vitals - Most Recent: Last Vital Signs Temp 98.4 F 01/15/19 07:48 Pulse 67 01/15/19 08:38 Resp 16 01/15/19 07:48 BP 119/59 L 01/15/19 08:38 Pulse Ox 99 01/15/19 07:48 Weight - Most Recent: 85.729 kg I&O - Last 24 Hours: Intake & Output 01/14/19 01/15/19 01/15/19 22:59 06:59 14:59 Intake Total 990 700 Output Total 250 950 Balance 740 -250 Lab Results Last 24 Hrs: Laboratory Results - last 24 hr 01/14/19 01/14/19 01/15/19 Range/Units 12:12 12:12 05:55 WBC 9.21 (4.0-11.0) K/uL RBC 4.12 L (4.30-5.90) M/uL Hgb 12.3 10.5 L (12.0-16.0) g/dL Hct 38.4 33.1 L (36.0-46.0) % MCV 93.2 (80.0-98.0) fL MCH 29.9 (27.0-32.0) pg MCHC 32.0 (31.0-37.0) g/dL RDW Std Deviation 46.9 (28.0-62.0) fl RDW Coeff of Karen 14 (11.0-15.0) % Plt Count 260 (150-400) K/uL MPV 10.20 (7.40-12.00) fL Neut % (Auto) 91.5 H (48.0-80.0) % Lymph % (Auto) 7.9 L (16.0-40.0) % Lamb % (Auto) 0.4 (0.0-15.0) % Eos % (Auto) 0.1 (0.0-7.0) % Baso % (Auto) 0.1 (0.0-1.5) % Neut # (Auto) 8.4 H (1.4-5.7) K/uL Lymph # (Auto) 0.7 (0.6-2.4) K/uL Lamb # (Auto) 0.0 (0.0-0.8) K/uL Eos # (Auto) 0.0 (0.0-0.7) K/uL Baso # (Auto) 0.0 (0.0-0.1) K/uL Nucleated RBC % 0.0 /100WBC Nucleated RBCs # 0 K/uL Sodium 137 (136-145) mmol/L Potassium 5.1 (3.5-5.1) mmol/L Chloride 101 (98-107) mmol/L Carbon Dioxide 25.6 (21.0-32.0) mmol/L BUN 26 H (7.0-18.0) mg/dL Creatinine 1.6 H (0.6-1.0) mg/dL Est Cr Clr Drug Dosing 26.09 mL/min Estimated GFR (MDRD) 31.8 ml/min Glucose 181 H (74-106) mg/dL Calcium 8.3 L (8.5-10.1) mg/dL Magnesium 2.0 (1.8-2.4) mg/dL 01/15/19 Range/Units 05:55 WBC (4.0-11.0) K/uL RBC (4.30-5.90) M/uL Hgb (12.0-16.0) g/dL Hct (36.0-46.0) % MCV (80.0-98.0) fL MCH (27.0-32.0) pg MCHC (31.0-37.0) g/dL RDW Std Deviation (28.0-62.0) fl RDW Coeff of Karen (11.0-15.0) % Plt Count (150-400) K/uL MPV (7.40-12.00) fL Neut % (Auto) (48.0-80.0) % Lymph % (Auto) (16.0-40.0) % Lamb % (Auto) (0.0-15.0) % Eos % (Auto) (0.0-7.0) % Baso % (Auto) (0.0-1.5) % Neut # (Auto) (1.4-5.7) K/uL Lymph # (Auto) (0.6-2.4) K/uL Lamb # (Auto) (0.0-0.8) K/uL Eos # (Auto) (0.0-0.7) K/uL Baso # (Auto) (0.0-0.1) K/uL Nucleated RBC % /100WBC Nucleated RBCs # K/uL Sodium 129 L (136-145) mmol/L Potassium 4.1 (3.5-5.1) mmol/L Chloride 95 L (98-107) mmol/L Carbon Dioxide 28.7 (21.0-32.0) mmol/L BUN 23 H (7.0-18.0) mg/dL Creatinine 1.2 H (0.6-1.0) mg/dL Est Cr Clr Drug Dosing 34.79 mL/min Estimated GFR (MDRD) 44.3 ml/min Glucose 123 H (74-106) mg/dL Calcium 7.9 L (8.5-10.1) mg/dL Magnesium (1.8-2.4) mg/dL Med Orders - Current: Current Medications Acetaminophen (Tylenol Extra Strength) 1,000 mg PO Q6H [facility] Last Admin: 01/15/19 07:45 Dose: 1,000 mg Al Hydroxide/Mg Hydroxide (Mag-Al Plus) 30 ml PO Q4H PRN PRN Reason: Indigestion Last Admin: 01/14/19 21:42 Dose: 30 ml Alprazolam (Xanax) 0.5 mg PO BID [facility] Last Admin: 01/15/19 08:26 Dose: 0.5 mg [facility] ([facility]in) [facility] [place] Admin: 01/15/19 08:33 Dose: 81 mg Atenolol (Tenormin) 25 mg PO QAM [facility] Last Admin: 01/15/19 08:38 Dose: 25 mg Bisacodyl (Dulcolax) 10 mg RECTAL DAILY PRN PRN Reason: Constipation Buspirone HCl (Buspar) 15 mg PO BID [facility] Last Admin: 01/15/19 08:28 Dose: 15 mg Calcium Carbonate (Caltrate 600+D 1500 Mg-400 Units) 1 tab PO QAM [facility] Last Admin: 01/15/19 08:32 Dose: 1 tab Clopidogrel Bisulfate (Plavix) 75 mg PO DAILY [facility] Last Admin: 01/15/19 08:33 Dose: 75 mg Diphenhydramine HCl (Benadryl) 25 - 50 mg PO Q6H PRN PRN Reason: Itching Docusate Sodium (Colace) 200 mg PO BEDTIME [facility] Last Admin: 01/14/19 20:02 Dose: 200 mg Famotidine (Pepcid) 40 mg IVPUSH ONARRIVE [facility] Last Admin: 01/14/19 07:24 Dose: 40 mg Famotidine (Pepcid) 20 mg PO BID [facility] Last Admin: 01/15/19 08:31 Dose: 20 mg Furosemide (Lasix) 40 mg PO QAM [facility] Last Admin: 01/15/19 08:33 Dose: 40 mg Hydromorphone HCl (Dilaudid) 0 mg IVPUSH ONETIME PRN PRN Reason: Breakthrough Pain Last Admin: 01/14/19 10:25 Dose: 0.5 mg Hydromorphone HCl (Dilaudid) 4 mg PO Q4HR PRN PRN Reason: Pain Last Admin: 01/15/19 07:42 Dose: 4 mg Hydromorphone HCl (Dilaudid) 0.5 - 1 mg IVPUSH Q3H PRN PRN Reason: Pain Acetaminophen 1,000 mg/ Premix 100 mls @ 400 mls/hr IV ONARRIVE [facility] Last Admin: 01/14/19 20:06 Dose: 400 mls/hr Cefazolin Sodium/Dextrose 2 gm (/ Premix) 50 mls @ 100 mls/hr IV ONCALL [facility] Ropivacaine 49.25 ml/Ketorolac Tromethamine 30 mg/Epinephrine HCl 0.5 mg/ Clonidine HCl 80 mcg/ Sodium Chloride 75 mls @ 50 mls/sec INJECT ASDIRECTED [facility] Lactated Ringer's (Ringers, Lactated) 1,000 mls @ 100 mls/hr IV ASDIRECTED [facility] Last Admin: 01/15/19 02:40 Dose: 100 mls/hr Tranexamic Acid 2,000 mg/ (Sodium Chloride) 120 mls @ 600 mls/hr IV ASDIRECTED [facility] Isosorbide Mononitrate (Imdur) 60 mg PO QAM [facility] Last Admin: 01/15/19 08:31 Dose: 60 mg Nitroglycerin (Nitrostat) 0.4 mg SL ASDIRECTED PRN PRN Reason: Chest Pain Ondansetron HCl (Zofran) 4 mg IVPUSH Q6H PRN PRN Reason: Nausea/Vomiting Budesonide/Formoterol Fumarate 1 Puff 0 each INH BID PRN PRN Reason: Shortness of Breath Polyethylene Glycol (Miralax) 17 gm PO DAILY [facility] Last Admin: 01/15/19 08:38 Dose: Not Given Pravastatin Sodium (Pravachol) [facility] [place] Admin: 01/15/19 08:28 Dose: 80 mg Pregabalin (Lyrica) 100 mg PO BID [facility] Last Admin: 01/15/19 08:30 Dose: 100 mg Scopolamine (Transderm-Scop) 1.5 mg TRDER ONARRIVE [facility] Last Admin: 01/14/19 07:24 Dose: 1.5 mg Sodium Chloride (Saline Flush) 10 ml FLUSH ASDIRECTED PRN PRN Reason: Keep Vein Open Sodium Chloride (Saline Flush) 2.5 ml FLUSH ASDIRECTED PRN PRN Reason: Keep Vein Open Spironolactone (Aldactone) 12.[facility] [place] Admin: 01/15/19 08:34 Dose: 12.5 mg Discontinued Medications Cefazolin Sodium/Dextrose (Ancef) Confirm Administered Dose 2 gm IV .STK-MED ONE Stop: 01/14/19 07:54 Dexamethasone (Dexamethasone) Confirm Administered Dose 20 mg .ROUTE .STK-MED ONE Stop: 01/14/19 07:21 Docusate Sodium (Colace) 100 mg PO BID PRN PRN Reason: Constipation Ephedrine Sulfate (Ephedrine Sulfate) Confirm Administered Dose 50 mg .ROUTE .STK-MED ONE Stop: 01/14/19 08:22 Famotidine (Pepcid) 40 mg PO DAILY [facility] Fentanyl (Sublimaze) Confirm Administered Dose 100 mcg .ROUTE .STK-MED ONE Stop: 01/14/19 07:14 Glycopyrrolate (Robinul) Confirm Administered Dose 0.4 mg .ROUTE .STK-MED ONE Stop: 01/14/19 08:46 Glycopyrrolate (Robinul) Confirm Administered Dose 0.2 mg .ROUTE .[facility] Stop: 01/14/19 09:16 Hydromorphone HCl (Dilaudid) Confirm Administered Dose 2 mg .ROUTE .[facility] Stop: 01/14/19 08:29 Lidocaine HCl (Xylocaine-Mpf 1%) Confirm Administered Dose 5 mls @ as directed .ROUTE .[facility] Stop: 01/14/19 07:20 Acetaminophen 1,000 mg/ Premix 100 mls @ 400 mls/hr IV Q6H [facility] Stop: 01/15/19 02:14 Last Admin: 01/15/19 02:42 Dose: 400 mls/hr Cefazolin Sodium/Dextrose 2 gm (/ Premix) 50 mls @ 100 mls/hr IV Q8H [facility] Stop: 01/15/19 00:29 Last Admin: 01/14/19 23:15 Dose: 100 mls/hr Ketamine HCl (Ketalar) Confirm Administered Dose 500 mg .ROUTE .[facility] ONE Stop: 01/14/19 07:20 Ketorolac Tromethamine (Toradol) Confirm Administered Dose 30 mg .ROUTE .[facility] ONE Stop: 01/14/19 08:46 Midazolam HCl (Versed 1 Mg/Ml) Confirm Administered Dose 2 mg .ROUTE .[facility] Stop: 01/14/19 07:14 Neostigmine Methylsulfate (Neostigmine) Confirm Administered Dose 5 mg .ROUTE .[facility] Stop: 01/14/19 08:46 Ondansetron HCl (Zofran) Confirm Administered Dose 4 mg .ROUTE .[facility] Stop: 01/14/19 08:46 Phenylephrine HCl (Phenylephrine In Ns 100 Mcg/Ml) Confirm Administered Dose 1 mg .ROUTE .[facility] Stop: 01/14/19 08:16 Potassium Chloride (Klor-Con M20) 20 meq PO BID [facility] Propofol (Diprivan 20 Ml) Confirm Administered Dose 400 mg .ROUTE .STK-MED ONE Stop: 01/14/19 07:14 Rocuronium [place] (Zemuron) Confirm Administered Dose 100 mg .ROUTE .ST-MED ONE Stop: 03/25/19 07:54 Tranexamic Acid (Cyklokapron) Confirm Administered Dose 2,000 mg .ROUTE .STK- MED ONE Stop: 01/14/19 07:28 Tranexamic Acid (Cyklokapron) Confirm Administered Dose 2,000 mg .ROUTE .STK- MED ONE Stop: 01/14/19 07:54 - Exam Wound/Incisions: Dressing Dry and Intact General: Alert, Oriented Cardiovascular: Regular Rate, Regular Rhythm Extremities: Other (exam RLE - at/ehl/gastroc 5/5, dp 2+, dorsal sensation to foot/low leg decreased d/t previous LS surgery, pt reports baseline sensation intact) Physical Findings Comment:: vss, afeb uo 1250mL hgb 10.5 - Problem List Review Problem List Initiated/Reviewed/Updated: Yes - My Orders Last 24 Hours: Active Orders 24 hr Category Date Time Status Communication Order [RC] PRN Care 01/14/19 09:19 Active Communication Order [RC] PRN Care 01/14/19 09:19 Active Neurovascular Check [RC] Q2HR Care 01/14/19 09:19 Active Notify Provider Consults [RC] ASDIRECTED Care 01/14/19 09:24 Active Notify Provider Vital Signs [RC] ASDIRECTED Care 01/14/19 09:19 Active RT Incentive Spirometry [RC] Q1HWA Care 01/14/19 09:19 Active Urinary Catheter Removal [RC] ASDIRECTED Care 01/15/19 06:00 Active Vital Signs [RC] PER UNIT ROUTINE Care 01/14/19 09:19 Active Wound Care [RC] Q12H Care 01/14/19 09:19 Active Consult to Physician [CONS] Routine Cons 01/14/19 09:19 Active PT Evaluation and Treatment [CONS] Routine Cons 01/14/19 09:19 Active BMP [BASIC METABOLIC PANEL,BMP] [CHEM] AM Lab 01/16/19 05:11 Ordered HEMOGLOBIN/HEMATOCRIT,HH [HEME] DAILY Lab 01/16/19 06:00 Ordered ALPRAZolam [Xanax] Med 01/14/19 21:00 Active 0.5 mg PO BID Acetaminophen [Tylenol Extra Strength] Med 01/15/19 08:00 Active 1,000 mg PO Q6H Alum Hydrox/Mag Hydrox/Simeth [Mag-Al Plus] Med 01/14/19 09:19 Active 30 ml PO Q4H PRN Aspirin [Halfprin] Med 01/15/19 09:00 Active 81 mg PO QAM Atenolol [Tenormin] Med 01/15/19 09:00 Active 25 mg PO QAM Bisacodyl [Dulcolax] Med 01/14/19 09:19 Active 10 mg RECTAL DAILY PRN Calcium Carbonate/Vitamin D3 [Caltrate 600+D 1500 MG- Med 01/15/19 09:00 Active 400 Units] 1 tab PO QAM Clopidogrel [Plavix] Med 01/15/19 09:00 Active 75 mg PO DAILY Docusate Sodium [Colace] Med 01/14/19 21:00 Active 200 mg PO BEDTIME Famotidine [Pepcid] Med 01/14/19 21:00 Active 20 mg PO BID Furosemide [Lasix] Med 01/15/19 09:00 Active 40 mg PO QAM HYDROmorphone [Dilaudid] Med 01/14/19 11:04 Active 0.5 - 1 mg IVPUSH Q3H PRN HYDROmorphone [Dilaudid] Med 01/14/19 09:24 Active 4 mg PO Q4HR PRN HYDROmorphone [Dilaudid] Med 01/14/19 09:00 Active See Dose Instructions IVPUSH ONETIME PRN Isosorbide Mononitrate [Imdur] Med 01/15/19 09:00 Active 60 mg PO QAM Nitroglycerin [Nitrostat] Med 01/14/19 09:24 Active 0.4 mg SL ASDIRECTED PRN Ondansetron [Zofran] Med 01/14/19 09:19 Active 4 mg IVPUSH Q6H PRN Patient's Own Medication [Ptom] Med 01/14/19 09:24 Active 0 each INH BID PRN Polyethylene Glycol 3350 [MiraLAX] Med 01/15/19 09:00 Active 17 gm PO DAILY Pravastatin [Pravachol] Med 01/15/19 09:00 Active 80 mg PO QAM Pregabalin [Lyrica] Med 01/14/19 21:00 Active 100 mg PO BID Sodium Chloride 0.9% [Saline Flush] Med 01/14/19 09:19 Active 10 ml FLUSH ASDIRECTED PRN Sodium Chloride 0.9% [Saline Flush] Med 01/14/19 09:19 Active 2.5 ml FLUSH ASDIRECTED PRN Spironolactone [Aldactone] Med 01/15/19 09:00 Active 12.5 mg PO QAM busPIRone [Buspar] Med 01/14/19 21:00 Active 15 mg PO BID diphenhydrAMINE [Benadryl] Med 01/14/19 09:19 Active 25 - 50 mg PO Q6H PRN Convert IV to Saline Lock [OM.PC] Routine Ot 01/15/19 06:00 Ordered Ice Therapy [OM.PC] Routine Ot 01/14/19 09:19 Ordered Medication Orders Acetaminophen (Tylenol Extra Strength) 1,000 mg PO Q6H [facility] Last Admin: 01/15/19 07:45 Dose: 1,000 mg Al Hydroxide/Mg Hydroxide (Mag-Al Plus) 30 ml PO Q4H PRN PRN Reason: Indigestion Last Admin: 01/14/19 21:42 Dose: 30 ml Alprazolam (Xanax) 0.5 mg PO BID [facility] Last Admin: 01/15/19 08:26 Dose: 0.5 mg Admin: 01/14/19 20:02 Dose: 0.5 mg Aspirin (Halfprin) 81 mg PO [facility] Last Admin: 01/15/19 08:33 Dose: 81 mg Atenolol (Tenormin) 25 mg PO QAM [facility] Last Admin: 01/15/19 08:38 Dose: 25 mg Bisacodyl (Dulcolax) 10 mg RECTAL DAILY PRN PRN Reason: Constipation Buspirone HCl (Buspar) 15 mg PO BID [facility] Last Admin: 01/15/19 08:28 Dose: 15 mg Admin: 01/14/19 20:02 Dose: 15 mg Calcium Carbonate (Caltrate 600+D 1500 Mg-400 Units) [facility] [place] Admin: 01/15/19 08:32 Dose: 1 tab Clopidogrel Bisulfate (Plavix) 75 mg PO DAILY [facility] Last Admin: 01/15/19 08:33 Dose: 75 mg Diphenhydramine HCl (Benadryl) 25 - 50 mg PO Q6H PRN PRN Reason: Itching Docusate Sodium (Colace) 200 mg PO BEDTIME [facility] Last Admin: 01/14/19 20:02 Dose: 200 mg Famotidine (Pepcid) 40 mg IVPUSH ONARRIVE [facility] Last Admin: 01/14/19 07:24 Dose: 40 mg Famotidine (Pepcid) 20 mg PO BID [facility] Last Admin: 01/15/19 08:31 Dose: 20 mg Admin: 01/14/19 20:03 Dose: 20 mg Furosemide (Lasix) 40 mg PO QAM [facility] Last Admin: 01/15/19 08:33 Dose: 40 mg Hydromorphone HCl (Dilaudid) 0 mg IVPUSH ONETIME PRN PRN Reason: Breakthrough Pain Last Admin: 01/14/19 10:25 Dose: 0.5 mg Admin: 01/14/19 10:15 Dose: 0.5 mg Admin: 01/14/19 10:05 Dose: 0.5 mg Admin: 01/14/19 09:55 Dose: 0.5 mg Hydromorphone HCl (Dilaudid) 4 mg PO Q4HR PRN PRN Reason: Pain Last Admin: 01/15/19 07:42 Dose: 4 mg Admin: 01/15/19 02:39 Dose: 4 mg Admin: 01/14/19 23:01 Dose: 4 mg Admin: 01/14/19 18:18 Dose: 4 mg Admin: 01/14/19 13:52 Dose: 4 mg Hydromorphone HCl (Dilaudid) 0.5 - 1 mg IVPUSH Q3H PRN PRN Reason: Pain Acetaminophen 1,000 mg/ Premix 100 mls @ 400 mls/hr IV ONARRIVE [facility] Last Admin: 01/14/19 20:06 Dose: 400 mls/hr Infusion: 01/14/19 20:06 Dose: 400 mls/hr Admin: 01/14/19 19:56 Dose: 400 mls/hr Infusion: 01/14/19 07:41 Dose: 400 mls/hr Admin: 01/14/19 07:26 Dose: 400 mls/hr Cefazolin Sodium/Dextrose 2 gm (/ Premix) 50 mls @ 100 mls/hr IV ONCALL [facility] Ropivacaine 49.25 ml/Ketorolac Tromethamine 30 mg/Epinephrine HCl 0.5 mg/ Clonidine HCl 80 mcg/ Sodium Chloride 75 mls @ 50 mls/sec INJECT ASDIRECTED [facility] Lactated Ringer's (Ringers, Lactated) 1,000 mls @ 100 mls/hr IV ASDIRECTED [facility] Last Admin: 01/15/19 02:40 Dose: 100 mls/hr Infusion: 01/15/19 02:09 Dose: 100 mls/hr Admin: 01/14/19 16:09 Dose: 100 mls/hr Infusion: 01/14/19 16:09 Dose: 100 mls/hr Admin: 01/14/19 07:15 Dose: 100 mls/hr Tranexamic Acid 2,000 mg/ (Sodium Chloride) 120 mls @ 600 mls/hr IV ASDIRECTED [facility] Isosorbide Mononitrate (Imdur) [facility] [place] Admin: 01/15/19 08:31 Dose: 60 mg Nitroglycerin (Nitrostat) 0.4 mg SL ASDIRECTED PRN PRN Reason: Chest Pain Ondansetron HCl (Zofran) 4 mg IVPUSH Q6H PRN PRN Reason: Nausea/Vomiting Budesonide/Formoterol Fumarate 1 Puff 0 each INH BID PRN PRN Reason: Shortness of Breath Polyethylene Glycol (Miralax) 17 gm PO DAILY [facility] Last Admin: 01/15/19 08:38 Dose: Not Given Pravastatin Sodium (Pravachol) [facility] [place] Admin: 01/15/19 08:28 Dose: 80 mg Pregabalin (Lyrica) 100 mg PO BID [facility] Last Admin: 01/15/19 08:30 Dose: 100 mg Admin: 01/14/19 20:01 Dose: 100 mg Scopolamine (Transderm-Scop) 1.5 mg TRDER ONARRIVE [facility] Last Admin: 01/14/19 07:24 Dose: 1.5 mg Sodium Chloride (Saline Flush) 10 ml FLUSH ASDIRECTED PRN PRN Reason: Keep Vein Open Sodium Chloride (Saline Flush) 2.5 ml FLUSH ASDIRECTED PRN PRN Reason: Keep Vein Open Spironolactone (Aldactone) 12.5 mg PO QAM [facility] Last Admin: 01/15/19 08:34 Dose: 12.5 mg - Assessment Assessment (Free Text/Narrative):: POD#1 R TKA acute posthemorrhagic anemia - Plan Plan (Free Text/Narrative):: DC IV fluids - saline lock IV DC andre dilaudid IV prn breakthrough pain scheduled tylenol dilaudid tabs prn available resume home plavix/81mg ASA as DVT prophylaxis PT today pt has wheeled walker or script has been written anticipate up to 72 hour stay for IV pain medication and continued physical therapy pt will require FWW for safe mobility/stability until increased strength/gait independence s/p TKA - has been safely mobilizing in room with FWW. d/ch medications written will change to aquacel on POD#2 or prior to discharge
--- NOTE | 2019-01-15 16:35 | PCM.SN ---
- Free Text/Narrative Note: d/ch summary #[id number]
--- NOTE | 2019-01-17 08:54 | DISCH ---
DATE OF DISCHARGE: 01/15/2019 PRIMARY CARE PHYSICIAN: Regan Yañez Jr, PA-C ADMITTING DIAGNOSIS: Degenerative joint disease, right knee, tricompartmental. OTHER MEDICAL DIAGNOSES: 1. Coronary artery disease, myocardial infarction, status post PCI. 2. Oxygen-dependent chronic obstructive pulmonary disease. 3. History of right carotid endarterectomy. 4. Chronic pain. 5. Anxiety. DISCHARGE DIAGNOSES: 1. Degenerative joint disease, right knee, tricompartmental. 2. Coronary artery disease, myocardial infarction, status post PCI. 3. Oxygen-dependent chronic obstructive pulmonary disease. 4. History of right carotid endarterectomy. 5. Chronic pain. 6. Anxiety. 7. Acute post hemorrhagic anemia. BRIEF HISTORY: Marisela is a 73-year-old female who has had progressive complaints of right knee pain. She has tried and failed conservative treatment. At that time, surgical treatment was recommended. On January 14, 2019, the patient underwent a right total knee arthroplasty done by Dr. Katiana Madera. This was done under general anesthesia. Estimated blood loss was 50 milliliters. Tourniquet time was 38 minutes. There were no known complications. Upon completion of procedure, the patient was transferred to the PACU and subsequently to Med/Surg for postoperative care. HOSPITAL COURSE: Postoperatively, the patient did well. Physical Therapy and the hospital service followed her through her hospital stay. She received two doses of antibiotics postoperatively for total of 24 hours of antibiotic coverage. Her home dose of Plavix and 81 mg aspirin was restarted on postoperative day number one as DVT prophylaxis. Her vital signs have been stable. She has been afebrile. She has been ambulating well with a wheeled walker. Her pain has been controlled with a combination of oral and IV pain medications. At this time, the patient is doing well. Her pain is under better control. She is ambulating well with a wheeled walker. She is tolerating oral intake. She is anxious for discharge to home. DISCHARGE MEDICATIONS: 1. Dilaudid 4 mg. 2. Tylenol Extra Strength 500 mg. 3. Colace 100 mg. 4. MiraLAX. For complete discharge instructions, please refer back to Dr. Madera's postoperative total knee arthroplasty patient instructions. Should she have questions or concerns prior to followup, she has been advised to contact the clinic. For complete medication reconciliation and discharge instructions, please refer back to the patient's EHR. [email or web address] / MODL /[id number]
== END 2019-01-15 14:40 | disposition home or self-care (01) | DRG 470 ==
LOC: MW.SDS 06:30 → MW.MS 09:19
PROVIDERS: ADMIT Orthopaedic Surgery; ATTEND Orthopaedic Surgery
PROC: 0SRC0J9 Replacement of Right Knee Joint with Synthetic Substitute, Cemented, Open Approach (ICD-10-PCS; principal; 2019-01-14)
DX: M17.11 Unilateral primary osteoarthritis, right knee (principal); D62 Acute posthemorrhagic anemia; I25.10 Atherosclerotic heart disease of native coronary artery without angina pectoris; I10 Essential (primary) hypertension; E78.5 Hyperlipidemia, unspecified; J44.9 Chronic obstructive pulmonary disease, unspecified; G62.9 Polyneuropathy, unspecified; E78.00 Pure hypercholesterolemia, unspecified; I73.9 Peripheral vascular disease, unspecified; E66.9 Obesity, unspecified; E11.9 Type 2 diabetes mellitus without complications; M94.20 Chondromalacia, unspecified site; M25.761 Osteophyte, right knee; K21.9 Gastro-esophageal reflux disease without esophagitis; M54.9 Dorsalgia, unspecified; G89.29 Other chronic pain; F32.9 Major depressive disorder, single episode, unspecified; F41.9 Anxiety disorder, unspecified; Z95.5 Presence of coronary angioplasty implant and graft; I25.2 Old myocardial infarction; Z99.81 Dependence on supplemental oxygen; Z88.5 Allergy status to narcotic agent; Z88.8 Allergy status to other drugs, medicaments and biological substances; Z79.899 Other long term (current) drug therapy; Z87.891 Personal history of nicotine dependence; Z79.82 Long term (current) use of aspirin
CPT/HCPCS: 36415; 86850; 86900; 86901; A9270; J0131; J0171; J0690; J0735; J1100; J1170 ×2; J1885 ×2; J2001; J2250; J2370; J2405; J2704; J2795; J3010; J3490 ×3; J7050; J7120; 73560-26-RT; 73560-RT; 80048; 83735; 85014; 85018; 85025; 97161-GP; 97530-GP; C1713; C1776